=== PATIENT | male | born 1970 | race Caucasian/White ===

== ENCOUNTER 2019-12-22 09:10 | Emergency (ER) | payer MEDICAID, SELFPAY ==
[2019-12-22 09:11] VITALS: BP 151/95; PULSE 61; RESP 17; TEMP 36.8; O2SAT 99; BMI 26.9
--- NOTE | 2019-12-22 09:23 | [facility].EDGENADL ---
ED Disposition Clinical Impression: Abscess Disposition: Home, Self-Care Condition on Discharge: Good Instructions: Boil Additional Instructions: Take antibiotics as prescribed. Follow-up with your PCP in the next 2 days. If you have any new, changing, worsening, or concerning symptoms, come back to the emergency department. Prescriptions: Sulfamethoxazole/Trimethoprim [Bactrim DS tablet] 1 each PO BID 5 Days #10 tab Prescription Printed Referrals: Benji Jean [Primary Care Provider] - Time of Disposition: 09:30 - Critical Care Critical Care Time: No Attestation: On 12/22/19, the high probability of a clinically significant, sudden or life threatening deterioration of the following system(s) required my full and direct attention, intervention and personal management. The time I documented below is in addition to time spent performing reported procedures but includes the following listed in this critical care notation. Medical Decision Making - Medical Records Medical records reviewed: Yes: I reviewed the patient's medical records. MR Comment: 49-year-old male presents emergency department with an abscess on his upper left back. He arrives to the ED hemodynamically stable, with reassuring vital signs, and looks well on exam. He does not have any surrounding cellulitis. He is not systemically ill, vital signs stable. He was agreeable to an incision and drainage after informed consent and the abscess was drained, wound culture sent. Start him on antibiotics and asked that he follow-up with his PCP in the next 2 to 3 days for wound check. He was given strict return precautions and discharge instructions and verbalized understanding and agreement to the plan. Safe to discharge. - Shadi Inquiry Pt receiving controlled substance: No Vital Signs: 12/22/19 09:11 Temperature 98.2 F Temperature Source Oral Pulse Rate [Right] 61 Respiratory Rate 17 Blood Pressure [Right Arm] 151/95 H Blood Pressure Mean [Right Arm] 113 02 Sat by Pulse Oximetry 99 Orders (Tests/Meds): ORDERS Category Date Time Status Wound Culture and Gram Stain Stat Micro 12/22/19 09:22 Ordered General Adult HPI - General Chief complaint: Wound/Laceration Stated complaint: spot n left shoulder,pain Time Seen by Provider: 12/22/19 09:23 Source of Information: Patient - History of Present Illness HPI narrative: 49-year-old male presents the emergency department with swelling on his back that he wants us to assess. He states he just noticed that over the last 2 to 3 days, is painful and red. He denies any fever or chills. He has been eating and drinking well at home. The area is on the left side of his upper back. He states any pressure on this area makes it feel worse, nothing else alleviates or aggravates the pain. He has not been take anything at home. No history of MRSA abscesses. He denies any other complaints or concerns. - Related Data Previous Rx's Medication Instructions Recorded Sulfamethoxazole/Trimethoprim 1 each PO BID 5 Days #10 tab 12/22/19 [Bactrim DS tablet] Allergies Allergy/AdvReac Type Severity Reaction Status Date / Time CODEINE Allergy Mild NA-NAUSEA/V Uncoded 05/03/17 14:[address] [facility] History - Hepatitis A Screen Drug use history?: No Attestation statement:: This patient has been screened for Hepatitis A risk factors. ROS Obtained: Yes All systems reviewed & no additional complaints Physical Exam - General General appearance: alert, in no apparent distress - Head Head exam: atraumatic, normocephalic, normal inspection - Eye Eye exam: Present: normal appearance, PERRL, EOMI - ENT ENT exam: Present: normal exam, mucous membranes moist, normal external ear exam - Neck Neck exam: Present: normal inspection, full ROM, trachea midline. Absent: meningismus, lymphadenopathy - Chest Chest inspection: Present: normal inspection, symmetric chest wall rise.
[2019-12-22 10:03] VITALS: BP 148/70; PULSE 80; RESP 16; TEMP 36.8; O2SAT 98
== END 2019-12-22 10:03 | disposition home or self-care (01) ==
PROVIDERS: Emergency Provider Emergency Medicine; PCP Family Medicine
DX: L02.212 Cutaneous abscess of back [any part, except buttock and flank] (principal)
CPT/HCPCS: 10060; 87070; 87077; 87186; 87205; 99282; 99283